=== PATIENT | male | born 1955 | race Caucasian/White ===

== ENCOUNTER 2025-06-29 07:15 | Day surgery (SDC) | payer MEDICARE, OTHER ==
[~2025-06-29 07:15] MED LIST: Morphine 8 MG, EPINEPHrine 0.3 MG, Cefuroxime 750 MG, Ketorolac 30 MG, Sodium Chloride ... PRN; Sodium Chloride 0.9% 10 ML Syringe FLUSH PRN
[2025-06-29] MEDS: Lactated Ringers 1,000 ML IV SCH (07:15)
[2025-06-29] MEDS ORDERED: propofoL 500 MG/50 ML 50 ML ONE (07:38)
[2025-06-29] MEDS ORDERED: dexmedeTOMIDine HCl 200 MCG/2 ML SDV ONE (07:39)
[2025-06-29] MEDS ORDERED: Ondansetron 4 MG/2 ML SDV ONE (07:39)
[2025-06-29] MEDS: oxyCODONE ER 10 MG TAB.ER PO ONE (07:50)
[2025-06-29] MEDS ORDERED: Midazolam 1 MG/ML 2 ML SDV ONE (08:19)
[2025-06-29] MEDS ORDERED: Lactated Ringers 1,000 ML ONE (08:34)
[2025-06-29] MEDS ORDERED: ePHEDrine 50 MG/ML SDV ONE (08:39)
[2025-06-29] MEDS ORDERED: Ropivacaine 0.5% 5 MG/ML 30 ML SDV ONE (08:53)
[2025-06-29] MEDS ORDERED: Sodium Chloride 0.9% 10 ML Syringe FLUSH SCH (09:00)
[2025-06-29] MEDS ORDERED: Ketorolac 30 MG/ML SDV IVPUSH PRN (09:03)
[2025-06-29] MEDS ORDERED: Ondansetron 4 MG/2 ML SDV IVPUSH PRN (09:03)
[2025-06-29] MEDS ORDERED: fentaNYL 100 MCG/2 ML SDV IVPUSH PRN (09:03)
[2025-06-29] MEDS: Morphine 8 MG, EPINEPHrine 0.3 MG, Cefuroxime 750 MG, Ketorolac 30 MG, Sodium Chloride ... PRN (09:34)
[2025-06-29] MEDS: Triamcinolone Acetonide 40 MG/ML 1 ML SDV ONE (09:55)
== END 2025-06-29 16:28 | disposition home or self-care (01) ==
LOC: JD.SDS 07:15
PROVIDERS: ATTEND Orthopaedic Surgery
DX: M17.0 Bilateral primary osteoarthritis of knee (principal); E11.9 Type 2 diabetes mellitus without complications; I10 Essential (primary) hypertension; E78.00 Pure hypercholesterolemia, unspecified; Z79.899 Other long term (current) drug therapy; Z87.891 Personal history of nicotine dependence
CPT/HCPCS: 0055T; 20610; 27447; 64447; 73560; 82947; 97110; 97116; 97161; A9270; J0169; J0665; J0690; J0697; J1885; J2250; J2272; J2405; J2704; J2795; J3301; J3373; J7120; 01402; C1713; C1776; J3490